=== PATIENT | female | born 1965 | race Caucasian/White ===

== ENCOUNTER → 2016-12-09 | Outpatient (CLI) | payer MEDICARE, OTHER ==
[~2016-12-09] MED LIST: DOXYCYCLINE; ESOM20CA OR
[2016-12-09 14:19] LABS: Urine Bilirubin Negative (Negative); Urine Blood Negative /uL (Negative); Urine Color Yellow (Yellow); Urine Glucose Normal (Normal); Urine Ketone Negative (Negative); Urine Nitrite Negative (Negative); Urine RBC 1 /hpf (0 - 4); Urine Squamous Epithelial Cell FEW /hpf (<5); Urine Urobilinogen Normal (Negative)
== END | disposition home or self-care (01) ==
LOC: LAB 09:19
PROVIDERS: ATTEND Specialist
DX: N39.0 Urinary tract infection, site not specified (principal)
CPT/HCPCS: 81001; 87086

== ENCOUNTER → 2017-05-14 | Outpatient (CLI) | payer MEDICARE, OTHER | END | disposition home or self-care (01) | LOC: LAB 14:35 | PROVIDERS: ATTEND Obstetrics & Gynecology | DX: N95.1 Menopausal and female climacteric states (principal); Z79.899 Other long term (current) drug therapy | CPT/HCPCS: 36415; 83001; 83002; 84403; 84443 ==

== ENCOUNTER → 2018-09-01 | Outpatient (CLI) | payer MEDICARE, OTHER, MEDICAID ==
[2018-09-01 16:04] LABS: Urine Bacteria FEW /hpf (None Seen); Urine Blood Negative /uL (Negative); Urine Specific Gravity 1.002 (1.001-1.035); Urine WBC 2 /hpf (0 - 5)
== END | disposition home or self-care (01) ==
LOC: LAB 14:41
PROVIDERS: ATTEND Obstetrics & Gynecology
DX: N39.0 Urinary tract infection, site not specified (principal)
CPT/HCPCS: 81001; 87086

== ENCOUNTER → 2018-12-23 | Outpatient (CLI) | payer MEDICARE, OTHER ==
[2018-12-23 12:46] LABS: Follicle Stimulating Hormone 66.57 IU/L (SEE BELOW); Leuteinizing Hormone 37.3 IU/L
== END | disposition home or self-care (01) ==
LOC: LAB 11:07
PROVIDERS: ATTEND Specialist
DX: N95.1 Menopausal and female climacteric states (principal)
CPT/HCPCS: 82670; 83001; 83002

== ENCOUNTER 2020-06-04 13:58 | Inpatient (IN) | payer MEDICARE, OTHER ==
[~2020-06-04] VITALS: Ht 162.6 cm; Wt 83.5 kg
[2020-06-04] MEDS ORDERED: SODIUM CHLORIDE 0.9% 1,000 ML IV ONE ×2 (14:45)
[2020-06-04 14:51] LABS: Basophils # (auto) 0 10 ^3/uL (0-0.2); Basophils % (auto) 0.4 % (0.0-2.0); Eosinophils # (auto) 0 10 ^3/uL (0-0.8); Eosinophils % (auto) 0.5 % (0.0-7.0); Hematocrit 40.1 % (36.0-46.0); Hemoglobin 13.5 g/dL (12.2-16.2); Lymphocytes # (auto) 1.1 10 ^3/uL (0.4-5.4); Lymphocytes % (auto) 25.7 % (10.0-50.0); Mean Corpuscular Hemoglobin 29.4 pg (28.0-32.0); Mean Corpuscular Hgb Conc. 33.6 g/dL (32.0-36.0); Mean Corpuscular Volume 87.5 fL (80.0-100.0); Monocytes # (auto) 0.7 10 ^3/uL (0-1.3); Neutrophils # (auto) 2.4 10 ^3/uL (1.6-8.6); Neutrophils % (auto) 57.4 % (37.0-80.0); Nucleated Red Blood Cells % 0.2 %; Platelet Count (auto) 161 10^3/uL (140-450); Red Blood Cells 4.59 10^6/uL (4.0-5.20); Red Cell Distribution Width 13.7 % (11.8-14.3); White Blood Cell 4.1 10^3/uL (4.4-10.8)
[2020-06-04 15:04] LABS: Albumin 3.6 g/dL (3.4-5.0); Calcium 8.5 mg/dL (8.5-10.1); Potassium 4.1 mmol/L (3.5-5.1)
[2020-06-04 15:09] LABS: BUN/Creatinine Ratio 26.5; Bilirubin, Total 0.6 mg/dL (0.2-1.0); Total Protein 6.9 g/dL (6.4-8.2)
[2020-06-04 15:19] LABS: CRP High Sensitivity 1.94 mg/dL (< 0.3); Lactate Dehydrogenase 207 U/L (84-246)
[2020-06-04] MEDS ORDERED: cefTRIAXone 1GM/50ML D5W 50 ML IV ONE (16:45)
[2020-06-04] MEDS ORDERED: DOXYCYCLINE 100MG/250ML 250 ML IV ONE (16:45)
[2020-06-04] MEDS ORDERED: DexAMETHasone SOD PHOS 10MG/1ML VIAL INJ IV ONE (16:45)
[2020-06-04] MEDS ORDERED: MORPHINE SULF INJ 2 MG/ML SYRINGE 1ML IV PRN (19:00)
[2020-06-04] MEDS ORDERED: ACETAMINOPHEN 500 MG TAB PO PRN (19:00)
[2020-06-04] MEDS ORDERED: NITROGLYCERIN 0.4 MG SL TAB SL PRN (19:00)
[2020-06-04 20:22] LABS: Urine Bacteria NONE SEEN /hpf (None Seen); Urine Blood Negative /uL (Negative); Urine Mucus FEW (None Seen); Urine Specific Gravity 1.019 (1.001-1.035); Urine WBC 18 /hpf (0 - 5)
[2020-06-04 20:43] LABS: Thyroid Stimulating Hormone 1.58 uIU/mL (0.358-3.74)
[2020-06-04] MEDS: ALBUTEROL SULF HFA 90MCG INH 200DOSE IN SCH (22:00)
[2020-06-04] MEDS: DOXYCYCLINE 100MG/250ML 250 ML IV SCH (23:11)
[2020-06-05] VITALS (7 sets, daily range): BP systolic 99–120; BP diastolic 57–73
--- NOTE | 2020-06-05 04:10 | NUR ---
Telemetry admit from ER DENISSE CARSON S admitted to Telemetry unit after SBAR received. Patient oriented to STEVE MELENDEZ, RN primary RN, unit, room, bed, and unit policies regarding patient care and visiting hours. Patient now on continuous telemetry monitoring, tele box # 5 and telemetry reading on arrival to unit is . Patient placed on bedside 2L oxygen, weighed by bedscale and encouraged to call if they need something. All questions and concerns addressed, patient verbalized understanding. Note:
--- NOTE | 2020-06-05 04:15 | NUR ---
Admission Patient does not know her home medication doses. Instructed to call her son in the morning to get the name and doses of medications. Will endorse to dayshift.
--- NOTE | 2020-06-05 06:32 | NUR ---
Diet Order Patient was admitted with no diet order. Page hospitalist to obtain diet order. Waiting to call back.
--- NOTE | 2020-06-05 06:34 | NUR ---
Pain Medication Patient c/o pain 11/24 to head. No pain medications orders, paged hospitalist waiting to call back.
[2020-06-05] MEDS ORDERED: ACETAMINOPHEN 325 MG TAB PO PRN (06:45)
[2020-06-05] MEDS: ALBUTEROL SULF HFA 90MCG INH 200DOSE IN SCH ×3 (07:05→21:38)
--- NOTE | 2020-06-05 07:05 | NUR ---
Respiratory note: ASSESSED PT , AWAKE AND ALERT, NO RESP DISTRESS NOTED. MDI NOT AT BEDSIDE, WAITING TO GET FROM PHARMACY. HR 68, RR 16, SPO2 98% ON 2L N/C.
--- NOTE | 2020-06-05 07:30 | NUR ---
Opening Shift Note Assumed care of patient, awake and alert. No S/S of distress/SOB. Instructed on POC and to call for assist PRN. Instructed on IS use and provided patient with one at bedside she verbalized understanding and returned demo. Teaching regarding constant proning given at this time as well she verbalized understanding. Pt currently on 2L n/c. Will continue to monitor for changes Q1hr and PRN.
--- NOTE | 2020-06-05 07:47 | NUR ---
Regarding pain patient states headache is now "worse 03/26" provided patient with ice to put on head and distraction. No pain meds ordered at this time to be given. Will continue to monitor. No distress or sob noted at this time. Call light within reach.
--- NOTE | 2020-06-05 08:15 | NUR ---
Patient sleeping breathing non labored no signs of pain noted. Cont to monitor
[2020-06-05] MEDS: cefTRIAXone 1GM/50ML D5W 50 ML IV SCH (09:30)
[2020-06-05] MEDS: DexAMETHasone SOD PHOS 10MG/1ML VIAL INJ IV SCH (09:35)
[2020-06-05] MEDS: ZINC SULFATE 220mg CAP or TAB PO SCH (09:36)
[2020-06-05] MEDS: ASCORBIC ACID 1,000 MG TAB PO SCH (09:36)
[2020-06-05] MEDS: ENOXAPARIN SOD 40 MG/0.4 ML SYRINGE SC SCH (09:36)
[2020-06-05] MEDS: DOXYCYCLINE 100MG/250ML 250 ML IV SCH ×2 (09:36→21:21)
[2020-06-05] MEDS: CHOLECALCIFEROL (VITD3) 2,000 UNIT CAP PO SCH (09:36)
--- NOTE | 2020-06-05 09:36 | NUR ---
Patient assisted tot he bathroom. Tolerated well. No signs of pain noted at this time. Cont to monitor
[2020-06-05] MEDS ORDERED: ENOXAPARIN SOD 40 MG/0.4 ML SYRINGE SC SCH (10:00)
[2020-06-05 10:55] LABS: Basophils # (auto) 0 10 ^3/uL (0-0.2); Basophils % (auto) 0.4 % (0.0-2.0); Eosinophils # (auto) 0 10 ^3/uL (0-0.8); Hematocrit 40.7 % (36.0-46.0); Hemoglobin 13.8 g/dL (12.2-16.2); Lymphocytes # (auto) 0.9 10 ^3/uL (0.4-5.4); Lymphocytes % (auto) 20.2 % (10.0-50.0); Mean Corpuscular Hemoglobin 29.7 pg (28.0-32.0); Mean Corpuscular Hgb Conc. 33.9 g/dL (32.0-36.0); Mean Corpuscular Volume 87.6 fL (80.0-100.0); Monocytes # (auto) 0.2 10 ^3/uL (0-1.3); Monocytes % (auto) 5.5 % (0.0-12.0); Neutrophils # (auto) 3.3 10 ^3/uL (1.6-8.6); Neutrophils % (auto) 73.9 % (37.0-80.0); Nucleated Red Blood Cells % 0.1 %; Platelet Count (auto) 192 10^3/uL (140-450); Red Blood Cells 4.64 10^6/uL (4.0-5.20); Red Cell Distribution Width 13.7 % (11.8-14.3); White Blood Cell 4.5 10^3/uL (4.4-10.8)
--- NOTE | 2020-06-05 11:04 | NUR ---
Spoke to MD MD Villar aware of patient's status including c/o headache and patient states she takes norco 7.5 tid prn at home. Awaiting new orders. Cont to monitor
[2020-06-05 11:06] LABS: Albumin 3.2 g/dL (3.4-5.0); Calcium 8.6 mg/dL (8.5-10.1); Potassium 3.9 mmol/L (3.5-5.1)
[2020-06-05 11:09] LABS: BUN/Creatinine Ratio 27.6; Bilirubin, Total 0.4 mg/dL (0.2-1.0); Total Protein 6.9 g/dL (6.4-8.2)
[2020-06-05] MEDS ORDERED: HYDR-392 PO (11:13)
[2020-06-05] MEDS: HYDROcodone-ACET 7.5/325MG TAB PO PRN ×2 (11:33→21:21)
--- NOTE | 2020-06-05 18:56 | NUR ---
Patient care endorsed endorsed care to Kristie martin. Patient sitting comfortably in bed 2l n/c no acute distress or sob noted. Call light within reach
--- NOTE | 2020-06-05 19:30 | NUR ---
Opening Shift Note Assumed care of patient, awake and alert. No S/S of distress/SOB or pain. Instructed on POC and to call for assist PRN, will continue to monitor for changes Q1hr and PRN.
[2020-06-05] MEDS: BUDESONIDE (INHALATION) 180 MCG IH IN SCH (22:15)
--- NOTE | 2020-06-05 22:55 | NUR ---
IV removal IV DC'd with clean sterile technique, catheter fully intact. Pressure dressing applied to site. Patient tolerated well. NOTE: RAC leaking
--- NOTE | 2020-06-05 23:00 | NUR ---
IV insertion IV access obtained, via clean sterile technique by inserting 20 gauge catheter at LFA after 3 attempts. IV secured properly. No trauma to site. Patient tolerated well.
[2020-06-06 05:00] VITALS: BP 123/72
[2020-06-06] MEDS: BUDESONIDE (INHALATION) 180 MCG IH IN SCH ×2 (07:48→21:58)
[2020-06-06] MEDS: ALBUTEROL SULF HFA 90MCG INH 200DOSE IN SCH ×3 (07:48→21:58)
[2020-06-06 08:44] VITALS: BP 104/63
[2020-06-06] MEDS: cefTRIAXone 1GM/50ML D5W 50 ML IV SCH (09:25)
[2020-06-06] MEDS: DexAMETHasone SOD PHOS 10MG/1ML VIAL INJ IV SCH (09:30)
[2020-06-06] MEDS: ENOXAPARIN SOD 40 MG/0.4 ML SYRINGE SC SCH (09:31)
[2020-06-06] MEDS: ZINC SULFATE 220mg CAP or TAB PO SCH (09:31)
[2020-06-06] MEDS: CHOLECALCIFEROL (VITD3) 2,000 UNIT CAP PO SCH (09:31)
[2020-06-06] MEDS: ASCORBIC ACID 1,000 MG TAB PO SCH (09:31)
[2020-06-06] MEDS: DOXYCYCLINE 100MG/250ML 250 ML IV SCH ×2 (09:33→22:02)
--- NOTE | 2020-06-06 10:52 | NUR ---
Oxygen on room air is 94% after patient was helped to the bathroom and ambulated independently. No acute distress or sob noted. Cont to monitor.
--- NOTE | 2020-06-06 12:19 | NUR ---
at bedside MD Villar at bedside, ambulated patient to nurses station and room air sat is 91%. New orders received for Remdesevir, convalescent plasma transfusion. Patient explained all risks and benefits and she agrees to treatment. Consents signed and faxed to Pharmacy, awaiting order for Remdesevir from Pharmacy. Cont to monitor
[2020-06-06] MEDS ORDERED: PANTOPRAZOLE 40 MG TAB PO ONE (12:45)
[2020-06-06] MEDS ORDERED: guaiFENesin-DM 100/10mg/5ml SYR PO PRN (13:00)
[2020-06-06 14:13] VITALS: BP 110/6
[2020-06-06] MEDS: HYDROcodone-ACET 7.5/325MG TAB PO PRN (16:15)
[2020-06-06 16:52] VITALS: BP 126/68
[2020-06-06] MEDS ORDERED: REMDESIVIR 200 MG in NS 210ml LOADING DOSE ADULT IV ONE (17:00)
--- NOTE | 2020-06-06 17:40 | NUR ---
Remdesevir started as ordered at this time after new IV access obtained to right AC 20g after one attempt. Consent verified and in chart for Remdesevir. Baseline VSS prior to infusion bp126/68 hr 82 T99.0 rr20 94%o2 on 2L n/c. Cont to monitor at bedside
--- NOTE | 2020-06-06 17:55 | NUR ---
VSS pt tolerating Remdesevir well with no s/s of allergic reaction noted. T 98.6 RR 16 HR 70 BP 115/69 O294%. Cont to monitor closely
--- NOTE | 2020-06-06 19:05 | NUR ---
Patient care endorsed endorsed care to Ceferino martin. Patient tolerated Remdesevir well with no s/s of allergic reaction. No acute distress or sob noted. Call light within reach
--- NOTE | 2020-06-06 19:10 | NUR ---
Opening Shift Note Assumed care of patient, awake, alert and oriented x4, on 2L of oxygen via NC with even and unlabored respirations, no S/S of distress/SOB or pain. Patient able to ambulate independently, bed in lowest locked position, side rails up x2, and call light within reach. Instructed on POC and to call for assist PRN, will continue to monitor for changes Q1hr and PRN.
[2020-06-06 22:00] VITALS: BP 120/70
[2020-06-07] VITALS (9 sets, daily range): BP systolic 113–123; BP diastolic 69–79
[2020-06-07] MEDS: ALBUTEROL SULF HFA 90MCG INH 200DOSE IN SCH ×3 (06:47→21:50)
[2020-06-07] MEDS: BUDESONIDE (INHALATION) 180 MCG IH IN SCH ×2 (06:47→21:50)
[2020-06-07] MEDS: cefTRIAXone 1GM/50ML D5W 50 ML IV SCH (09:05)
[2020-06-07] MEDS: DexAMETHasone SOD PHOS 10MG/1ML VIAL INJ IV SCH (09:14)
[2020-06-07] MEDS: ZINC SULFATE 220mg CAP or TAB PO SCH (09:15)
[2020-06-07] MEDS: ASCORBIC ACID 1,000 MG TAB PO SCH (09:15)
[2020-06-07] MEDS: ENOXAPARIN SOD 40 MG/0.4 ML SYRINGE SC SCH (09:16)
[2020-06-07] MEDS: CHOLECALCIFEROL (VITD3) 2,000 UNIT CAP PO SCH (09:16)
[2020-06-07] MEDS ORDERED: IOHEXOL 300 MG/ML 100ML BOTTLE IJ ONE (09:27)
--- NOTE | 2020-06-07 09:48 | NUR ---
Patient transported to CT via wheelchair accompanied by security, EVS and group leader [employer]. No distress on departure.
[2020-06-07] MEDS: PANTOPRAZOLE 40 MG TAB PO SCH (10:00)
[2020-06-07] MEDS: DOXYCYCLINE 100MG/250ML 250 ML IV SCH ×2 (10:00→21:18)
--- NOTE | 2020-06-07 11:26 | NUR ---
Convalescent plasma started at this time. Cont to monitor at bedside
[2020-06-07 11:47] LABS: Basophils # (auto) 0 10 ^3/uL (0-0.2); Basophils % (auto) 0.5 % (0.0-2.0); Eosinophils # (auto) 0 10 ^3/uL (0-0.8); Eosinophils % (auto) 0.1 % (0.0-7.0); Hematocrit 39.5 % (36.0-46.0); Hemoglobin 13.2 g/dL (12.2-16.2); Lymphocytes # (auto) 1.3 10 ^3/uL (0.4-5.4); Lymphocytes % (auto) 18.2 % (10.0-50.0); Mean Corpuscular Hemoglobin 29.2 pg (28.0-32.0); Mean Corpuscular Hgb Conc. 33.4 g/dL (32.0-36.0); Mean Corpuscular Volume 87.5 fL (80.0-100.0); Monocytes # (auto) 0.6 10 ^3/uL (0-1.3); Monocytes % (auto) 9.2 % (0.0-12.0); Nucleated Red Blood Cells % 0.1 %; Platelet Count (auto) 225 10^3/uL (140-450); Red Blood Cells 4.52 10^6/uL (4.0-5.20); Red Cell Distribution Width 13.6 % (11.8-14.3); White Blood Cell 6.9 10^3/uL (4.4-10.8)
[2020-06-07 12:02] LABS: BUN/Creatinine Ratio 30.6; Calcium 8.4 mg/dL (8.5-10.1); Potassium 3.9 mmol/L (3.5-5.1)
--- NOTE | 2020-06-07 13:00 | NUR ---
Patient tolerated plasma well with no signs of allergic reaction. Cont to monitor closely
[2020-06-07] MEDS: REMDESIVIR 100mg in NS 230ml DAILYx4DAYS (NO VENT) IV SCH (17:19)
--- NOTE | 2020-06-07 17:19 | NUR ---
Remdesevir started after consent verified and patient verbalized understanding regarding reporting adverse reactions to primary rn. Baseline VS obtained. Will continue to monitor at bedside. 15 min VSS T98.8 HR 64 RR20 O295% BP 121/65 Patient tolerating infusion well. Cont to monitor closely.
--- NOTE | 2020-06-07 18:59 | NUR ---
Patient tolerated Remdesevir well with no signs of allergic reaction noted. VSS. Patient currently on 2L n/c. No acute distress or sob noted. Call light within reach. Will endorse care to oncoming rn.
--- NOTE | 2020-06-07 19:06 | NUR ---
Patient care endorsed endorsed care to Ceferino martin. Patient sitting up in bed no acute distress or sob noted. Patient on 2l n/c sat 94%. Call light within reach
--- NOTE | 2020-06-07 19:10 | NUR ---
Opening Shift Note Assumed care of patient, awake, alert and oriented x4, on room 2L of oxygen via NC with even and unlabored respirations, no S/S of distress/SOB or pain. Patient able to ambulate independently, bed in lowest locked position, side rails up x2, and call light within reach. Instructed on POC and to call for assist PRN, will continue to monitor for changes Q1hr and PRN.
[2020-06-07] MEDS: HYDROcodone-ACET 7.5/325MG TAB PO PRN (21:18)
[2020-06-08 05:00] VITALS: BP 124/72
[2020-06-08] MEDS: ALBUTEROL SULF HFA 90MCG INH 200DOSE IN SCH ×3 (06:55→22:19)
[2020-06-08] MEDS: BUDESONIDE (INHALATION) 180 MCG IH IN SCH ×2 (06:56→22:19)
[2020-06-08 08:00] VITALS: BP 110/72
[2020-06-08] MEDS: cefTRIAXone 1GM/50ML D5W 50 ML IV SCH (08:50)
--- NOTE | 2020-06-08 09:15 | NUR ---
Midline Need Midline order placed due to patient multiple IVs. Patient does not want any further IV attempts but prefers a midline to be place. PICC nurse notified and said she'll come after shes done with stress test.
[2020-06-08 09:19] VITALS: BP 110/72
[2020-06-08 10:01] LABS: Calcium 8.7 mg/dL (8.5-10.1); Potassium 3.6 mmol/L (3.5-5.1)
[2020-06-08 10:07] LABS: Albumin 3.3 g/dL (3.4-5.0); BUN/Creatinine Ratio 38.6; Bilirubin, Total 0.4 mg/dL (0.2-1.0); Total Protein 6.6 g/dL (6.4-8.2)
[2020-06-08] MEDS: PANTOPRAZOLE 40 MG TAB PO SCH (10:41)
[2020-06-08] MEDS: ASCORBIC ACID 1,000 MG TAB PO SCH (10:41)
[2020-06-08] MEDS: ENOXAPARIN SOD 40 MG/0.4 ML SYRINGE SC SCH (10:41)
[2020-06-08] MEDS: CHOLECALCIFEROL (VITD3) 2,000 UNIT CAP PO SCH (10:41)
[2020-06-08] MEDS: ZINC SULFATE 220mg CAP or TAB PO SCH (10:41)
--- NOTE | 2020-06-08 12:25 | NUR ---
Midline Placement: Patient educated on need for midline placement. All risks and benefits explained and all questions and concerns addresses prior to procedure. 18g/10 cm midline inserted via left basilic vein using Ultrasound. Sterile technique utilized. Blood return obtained from the single lumen and flushed easily with NS using proper technique. Midline secured with saline lock; biodisc and occlusive dressing applied. Primary RN Kristie notified. Midline lot # [id number]
[2020-06-08] MEDS: DexAMETHasone SOD PHOS 10MG/1ML VIAL INJ IV SCH (12:37)
[2020-06-08] MEDS: DOXYCYCLINE 100MG/250ML 250 ML IV SCH ×2 (12:37→21:10)
[2020-06-08 13:00] VITALS: BP 124/75
[2020-06-08] MEDS ORDERED: LORATADINE 10 MG TAB PO ONE (13:00)
--- NOTE | 2020-06-08 13:00 | NUR ---
Telephone Update Dr. Villar called in regards of patient. Status given to Doctor.
--- NOTE | 2020-06-08 16:03 | NUR ---
Nutrition Assessment Notes Please refer to link for full assessment notes. Est Energy needs: 0558-4907 kcals (17-20 kcal/kgBW) Est Protein needs: 69-86 gms/day (0.8-1.0 gm/kgBW) Will continue to monitor and reassess prn. Addendum: 06/08/20 at [address] Amended: Links added.
[2020-06-08 17:00] VITALS: BP 107/62
[2020-06-08] MEDS: REMDESIVIR 100mg in NS 230ml DAILYx4DAYS (NO VENT) IV SCH (17:29)
--- NOTE | 2020-06-08 17:29 | NUR ---
Remdesivir Patient aware of medication to be administer. Pre vitals: T-97.5, BP-108/60, O2-94%, HR-72, R-18, P-0
--- NOTE | 2020-06-08 17:59 | NUR ---
Half Way Through Remdesivir Patient sates to feel well. Pre vitals: T-97.9, BP-107/59, O2-95%, HR-75, R-18, P-0
--- NOTE | 2020-06-08 18:29 | NUR ---
Post Remdesivir Vitals No status change. Post Vitals: T-97.8, BP-117/78, O2-94%, HR-68, R-18, P-0
--- NOTE | 2020-06-08 19:30 | NUR ---
Opening Shift Note Assumed care of patient, awake and alert x4. Patient denies pain or shortness of breath at this time. No sign/symptoms of distress noted or verbalized at this time. Instructed on plan of care and encouraged patient to call for assistance as needed, patient verbalized understanding. Bed is locked in lowest position, side rails x2 are up, and call light is within reach,
[2020-06-08 22:00] VITALS: BP 118/71
[2020-06-09] VITALS (8 sets, daily range): BP systolic 106–132; BP diastolic 58–76
[2020-06-09] MEDS: ALBUTEROL SULF HFA 90MCG INH 200DOSE IN SCH ×3 (07:24→22:17)
[2020-06-09] MEDS: BUDESONIDE (INHALATION) 180 MCG IH IN SCH ×2 (07:24→22:17)
--- NOTE | 2020-06-09 08:00 | NUR ---
OPENING SHIFT NOTE: PATIENT RESTING IN BED. RESPIRATIONS EVEN AND UNLABORED. ALERT AND ORIENTED X4. PATIENT DENIES ANY SOB AT THIS TIME. PATIENT ON 1L NC. INCENTIVE SPIROMETER AT BEDSIDE. ABLE TO PROVIDE PROPER RETURN DEMONSTRATION 2250ML. BED IN LOWEST LOCKED POSITION WITH CALL LIGHT WITHIN REACH.
[2020-06-09] MEDS: cefTRIAXone 1GM/50ML D5W 50 ML IV SCH (08:36)
[2020-06-09] MEDS: DOXYCYCLINE 100MG/250ML 250 ML IV SCH (08:37)
[2020-06-09] MEDS: DexAMETHasone SOD PHOS 10MG/1ML VIAL INJ IV SCH (08:37)
[2020-06-09] MEDS: ZINC SULFATE 220mg CAP or TAB PO SCH (08:37)
[2020-06-09] MEDS: CHOLECALCIFEROL (VITD3) 2,000 UNIT CAP PO SCH (08:38)
[2020-06-09] MEDS: PANTOPRAZOLE 40 MG TAB PO SCH (08:38)
[2020-06-09] MEDS: LORATADINE 10 MG TAB PO SCH (08:38)
[2020-06-09] MEDS: ENOXAPARIN SOD 40 MG/0.4 ML SYRINGE SC SCH (08:38)
[2020-06-09] MEDS: ASCORBIC ACID 1,000 MG TAB PO SCH (08:38)
[2020-06-09 09:12] LABS: Potassium 3.7 mmol/L (3.5-5.1)
[2020-06-09 09:20] LABS: Albumin 3.4 g/dL (3.4-5.0); Bilirubin, Total 0.3 mg/dL (0.2-1.0); Calcium 8.5 mg/dL (8.5-10.1); Total Protein 6.8 g/dL (6.4-8.2)
[2020-06-09] MEDS: REMDESIVIR 100mg in NS 230ml DAILYx4DAYS (NO VENT) IV SCH (17:38)
--- NOTE | 2020-06-09 19:30 | NUR ---
Opening Shift Note Assumed care of patient, awake and alert x4. Patient denies pain or shortness of breath at this time. Patient is on 1L/min NC, spo2: 95% at this time. No sign/symptoms of distress noted or verbalized at this time. Incentive spirometer noted at the bedside encouraged patient to use incentive spirometer at least 10 times every hour while awake, patient verbalized understanding. Instructed on plan of care and encouraged patient to call for assistance as needed, patient verbalized understanding. Bed is locked in lowest position, side rails x2 are up, and call light is within reach.
[2020-06-10 05:00] VITALS: BP 102/52
[2020-06-10] MEDS: BUDESONIDE (INHALATION) 180 MCG IH IN SCH ×2 (06:49→23:08)
[2020-06-10] MEDS: ALBUTEROL SULF HFA 90MCG INH 200DOSE IN SCH ×3 (06:49→23:08)
[2020-06-10 07:35] LABS: Potassium 3.9 mmol/L (3.5-5.1)
[2020-06-10 07:44] LABS: Albumin 3.5 g/dL (3.4-5.0); BUN/Creatinine Ratio 45.8; Bilirubin, Total 0.4 mg/dL (0.2-1.0); Calcium 8.6 mg/dL (8.5-10.1); Total Protein 7.1 g/dL (6.4-8.2)
[2020-06-10 08:00] VITALS: BP 105/52
[2020-06-10] MEDS: DexAMETHasone SOD PHOS 10MG/1ML VIAL INJ IV SCH (09:39)
[2020-06-10] MEDS: LORATADINE 10 MG TAB PO SCH (09:39)
[2020-06-10] MEDS: cefTRIAXone 1GM/50ML D5W 50 ML IV SCH (09:39)
[2020-06-10] MEDS: ZINC SULFATE 220mg CAP or TAB PO SCH (09:39)
[2020-06-10] MEDS: PANTOPRAZOLE 40 MG TAB PO SCH (09:40)
[2020-06-10] MEDS: ASCORBIC ACID 1,000 MG TAB PO SCH (09:40)
[2020-06-10] MEDS: ENOXAPARIN SOD 40 MG/0.4 ML SYRINGE SC SCH (09:40)
[2020-06-10] MEDS: CHOLECALCIFEROL (VITD3) 2,000 UNIT CAP PO SCH (09:40)
[2020-06-10 12:00] VITALS: BP 114/67
[2020-06-10 17:00] VITALS: BP 105/65
[2020-06-10] MEDS: REMDESIVIR 100mg in NS 230ml DAILYx4DAYS (NO VENT) IV SCH (17:17)
--- NOTE | 2020-06-10 19:18 | NUR ---
Opening Shift Note Assumed care of patient, awake, alert and oriented x4, on room air with even and unlabored respirations, no S/S of distress/SOB or pain. Patient able to ambulate independently, bed in lowest locked position, side rails up x2, and call light within reach. Instructed on POC and to call for assist PRN, will continue to monitor for changes Q1hr and PRN.
[2020-06-10 21:41] VITALS: BP 105/65
[2020-06-10 21:51] VITALS: BP 113/65
[2020-06-11 04:59] VITALS: BP 113/72
[2020-06-11] MEDS: ALBUTEROL SULF HFA 90MCG INH 200DOSE IN SCH ×2 (06:25→14:00)
[2020-06-11] MEDS: BUDESONIDE (INHALATION) 180 MCG IH IN SCH (06:26)
--- NOTE | 2020-06-11 07:30 | NUR ---
Opening Shift Note Assumed care of patient, awake and alert. No S/S of distress/SOB or pain, currently on room air, Instructed on POC and to call for assist PRN, Call light within reach, will continue to monitor for changes Q1hr and PRN.
[2020-06-11 08:00] VITALS: BP 96/54
[2020-06-11] MEDS: cefTRIAXone 1GM/50ML D5W 50 ML IV SCH (10:00)
[2020-06-11] MEDS: ENOXAPARIN SOD 40 MG/0.4 ML SYRINGE SC SCH (10:01)
[2020-06-11] MEDS: ZINC SULFATE 220mg CAP or TAB PO SCH (10:01)
[2020-06-11] MEDS: DexAMETHasone SOD PHOS 10MG/1ML VIAL INJ IV SCH (10:01)
[2020-06-11] MEDS: PANTOPRAZOLE 40 MG TAB PO SCH (10:03)
[2020-06-11] MEDS: LORATADINE 10 MG TAB PO SCH (10:04)
[2020-06-11] MEDS: CHOLECALCIFEROL (VITD3) 2,000 UNIT CAP PO SCH (10:05)
[2020-06-11] MEDS: ASCORBIC ACID 1,000 MG TAB PO SCH (10:05)
[2020-06-11] MEDS ORDERED: CHOL1CAP47 PO (10:18)
[2020-06-11] MEDS ORDERED: METH4PAK PO (10:18)
[2020-06-11] MEDS ORDERED: ZINC220T6 PO (10:18)
[2020-06-11] MEDS ORDERED: PANT40T PO (10:18)
[2020-06-11] MEDS ORDERED: ASCO10003 PO (10:18)
[2020-06-11] MEDS ORDERED: ALBUAER3 IN (10:18)
--- NOTE | 2020-06-11 11:43 | NUR ---
assessment Patient is a 54 year old female who is alert and oriented. Patients cognitive abilities are intact. Prior to admission patient lived home with family and functioned independently. Patient informed me she is able to care for her own ADLs. Per patient she will return home to her prior living arrangements post discharge and family will transport her home. Patient is covid positive. Patient is on room air as of now. Patient has a discharge in. Patient has no post discharge needs identified. I informed patient she has a right to speak to a social work job titles regarding all care. I informed patient she has a right to participate in any and all discharge planning. Patient does not have a POA and advanced directive. I have offered patient information on POA and advanced directives. I informed the patient the advantages and benefits of having an Advanced Directive. Patient verbalized understanding and agreed to discharge plan. Addendum: 06/11/20 at 1145 by Francia ALONSO Amended: Links added.
[2020-06-11 12:00] VITALS: BP 112/69
[2020-06-11 12:04] VITALS: BP 112/69
--- NOTE | 2020-06-11 14:39 | NUR ---
DISCHARGE WITH PROPER ISOLATION PRECAUTIONS Discharge instructions given as ordered. Encourage to follow up with PMD as instructed. Appointment made to follow up with Dr Miller on June 21 @ 12:00 via phone call, patient also instructed to provide her PCP office with medical record contact info to request medical records. All questions and concerns addressed. Patient verbalized understanding. Medication reconciliation form completed and copy given to patient. IV removed with catheter intact, pressure dressing applied. Telemetry unit returned to ICU. Patient taken to vehicle via wheelchair with all personal belongings, wearing simple mask, accompanied by staff member. No distress noted at time of departure.
--- NOTE | 2020-06-11 15:01 | NUR ---
Nutrition Followup Notes Pt wt is 83.5 kg Pt is positive for COVID. Pt is with a Cardiac 2gNa,lowfat,lowchol diet, appetite is good aeb 75% PO intake over 3 meals per RN doc. Est Energy needs: 3411-2734 kcals (20-23 kcal/kgBW) Est Protein needs: 56-62 gms/day (1.0-1.1 gm/kgBW) Will continue to monitor and reassess prn. LABS: BUN 22 H GI: Pt had 2 BM on 06/10 per RN doc. BS: 22 low risk. Refer to Wound Assessment report for further details. PES: 1) Obesity r.t energy intake in excess of energy needs aeb BMI of 32.7 kg/m2 2) Altered nutrition related lab values r/t current medical condition aeb hyperglycemia, hypocalcemia, hypoalbuminemia Comments Will continue to monitor PO status, skin status, pertinent labs and weight trends. Will f/u in 3-5 days. 1) Continue to carefully monitor pt PO intake to meet at least 75% of meals 2) Continue current plan of care
== END 2020-06-11 14:40 | disposition home or self-care (01) | DRG 871 ==
LOC: ER 13:58 → EDBD 13:58 → TELE 13:59 → TELE-EAST 06-05 04:10
PROVIDERS: ADMIT Nurse Practitioner Acute Care; ATTEND Internal Medicine
PROC: XW033E5 Introduction of Remdesivir Anti-infective into Peripheral Vein, Percutaneous Approach, New Technology Group 5 (ICD-10-PCS; 2020-06-06)
PROC: XW13325 Transfusion of Convalescent Plasma (Nonautologous) into Peripheral Vein, Percutaneous Approach, New Technology Group 5 (ICD-10-PCS; principal; 2020-06-07)
DX: A41.89 Other specified sepsis (principal); U07.1 COVID-19; J12.89 Other viral pneumonia; N17.0 Acute kidney failure with tubular necrosis; J96.01 Acute respiratory failure with hypoxia; E44.0 Moderate protein-calorie malnutrition; E86.0 Dehydration; I10 Essential (primary) hypertension; E78.5 Hyperlipidemia, unspecified; E66.9 Obesity, unspecified; E04.1 Nontoxic single thyroid nodule; F17.210 Nicotine dependence, cigarettes, uncomplicated; K21.9 Gastro-esophageal reflux disease without esophagitis; E04.2 Nontoxic multinodular goiter; G62.9 Polyneuropathy, unspecified; Z79.899 Other long term (current) drug therapy; Z79.891 Long term (current) use of opiate analgesic; Z88.8 Allergy status to other drugs, medicaments and biological substances
CPT/HCPCS: 36415; 70450; 71045; 71260; 80048; 80053; 81001; 82728; 83615; 83735; 84443; 84484; 84702; 85025; 85379; 86141; 86850; 86900; 86901; 87040; 87086; 87426; 87804; 93005; 93886; 94640; 96361; 96365; 96375; G0378; J0696; J1100; J3490

== ENCOUNTER 2021-09-01 05:49 | Emergency (ER) | payer MEDICARE, OTHER ==
[~2021-09-01] VITALS: Ht 157.5 cm; Wt 77.1 kg
[~2021-09-01 05:49] MED LIST changes: +ALBUAER3 IN; +ASCO10003 PO; +CHOL1CAP47 PO; -DOXYCYCLINE; +HYDR-392 PO; +METH4PAK PO; +PANT40T PO; +ZINC220T6 PO
[2021-09-01] MEDS ORDERED: AZITHROMYCIN 500MG/ 250ML 250 ML IV ONE (06:30)
[2021-09-01] MEDS ORDERED: DexAMETHasone INJECTION 10 MG in D5W 5% 50 ML IV ONE (06:30)
[2021-09-01] MEDS ORDERED: SODIUM CHLORIDE 0.9% 500 ML IV ONE (06:30)
[2021-09-01] MEDS ORDERED: KETOROLAC TROMETH 30 MG/ML 1ML VIAL IV ONE (06:30)
[2021-09-01] MEDS ORDERED: ACETAMINOPHEN 325 MG TAB PO ONE (06:30)
[2021-09-01] MEDS ORDERED: DEXA6TAB PO (08:07)
[2021-09-01] MEDS ORDERED: AZIT250T9 PO (08:07)
[2021-09-01 10:24] LABS: Basophils # (auto) 0 10 ^3/uL (0-0.2); Basophils % (auto) 0.3 % (0.0-2.0); Eosinophils # (auto) 0 10 ^3/uL (0-0.8); Eosinophils % (auto) 0.5 % (0.0-7.0); Hematocrit 42.3 % (36.0-46.0); Hemoglobin 14.6 g/dL (12.2-16.2); Lymphocytes % (auto) 13.4 % (10.0-50.0); Mean Corpuscular Hemoglobin 30.6 pg (28.0-32.0); Mean Corpuscular Hgb Conc. 34.6 g/dL (32.0-36.0); Mean Corpuscular Volume 88.6 fL (80.0-100.0); Monocytes # (auto) 1.1 10 ^3/uL (0-1.3); Monocytes % (auto) 14.6 % (0.0-12.0); Neutrophils # (auto) 5.2 10 ^3/uL (1.6-8.6); Neutrophils % (auto) 71.2 % (37.0-80.0); Nucleated Red Blood Cells % 0.1 %; Red Blood Cells 4.78 10^6/uL (4.0-5.20); Red Cell Distribution Width 13.2 % (11.8-14.3); White Blood Cell 7.4 10^3/uL (4.4-10.8)
[2021-09-01 10:25] LABS: Albumin 3.9 g/dL (3.4-5.0); Calcium 9.2 mg/dL (8.5-10.1); Potassium 3.7 mmol/L (3.5-5.1)
[2021-09-01 10:29] LABS: Bilirubin, Total 0.7 mg/dL (0.2-1.0); Total Protein 8.1 g/dL (6.4-8.2)
[2021-09-01 12:09] VITALS: BP 108/58
== END 2021-09-01 12:55 | disposition home or self-care (01) ==
LOC: EDUNIT# 05:49 → EDBD 05:49 → ER 05:49
DX: U07.1 COVID-19 (principal); J12.82 Pneumonia due to coronavirus disease 2019; I10 Essential (primary) hypertension; E11.9 Type 2 diabetes mellitus without complications; K21.9 Gastro-esophageal reflux disease without esophagitis; F17.210 Nicotine dependence, cigarettes, uncomplicated; Z90.710 Acquired absence of both cervix and uterus; Z79.899 Other long term (current) drug therapy; Z88.8 Allergy status to other drugs, medicaments and biological substances
CPT/HCPCS: 36415; 80053; 85025; 87426; 96365; 96366; 96375; 99284; J0456; J1100; J1885; J7060